=== PATIENT | male | born 1985 | race Caucasian/White ===

== ENCOUNTER → 2017-09-22 | Outpatient (CLI) | payer OTHER ==
[~2017-09-22] MED LIST: ALBU90OI INH; AZIT250 PO; CEPH500 PO; CLIN150 PO; CLIN300 PO; CODACEE120 PO; Cleocin HCl300 MG PO; DIPH50; IBUP600 PO; IBUP800 PO; METPRE4DP PO; MONDOXYNE NL100 MG PO; Mupirocin22 GM TOP; OXYACE5T PO; PRODEXEL PO; RXOXYACE PO; Tylenol325 MG PO; Ultram50 MG PO; Vibramycin100 MG PO; Zithromax250 MG PO
== END ==
LOC: LAB EV 18:33
DX: L03.90 Cellulitis, unspecified (principal)
CPT/HCPCS: 87070; 87075; 87077; 87147; 87186; 87205

== ENCOUNTER 2019-07-05 16:31 | Emergency (ER) | payer MEDICAID ==
[~2019-07-05] VITALS: Ht 180.3 cm; Wt 77.1 kg
[~2019-07-05 16:31] MED LIST changes: +BENADRYL25 MG PO; +Prednisone20 MG PO
== END 2019-07-05 18:40 | disposition home or self-care (01) ==
LOC: ER 16:31
DX: T40.1X1A Poisoning by heroin, accidental (unintentional), initial encounter (principal); L53.8 Other specified erythematous conditions; T43.625A Adverse effect of amphetamines, initial encounter; I10 Essential (primary) hypertension; F17.210 Nicotine dependence, cigarettes, uncomplicated
CPT/HCPCS: 99283-25

== ENCOUNTER 2021-10-11 14:43 | Emergency (ER) | payer OTHER ==
[~2021-10-11] VITALS: Ht 180.3 cm; Wt 83.9 kg
[2021-10-11] MEDS ORDERED: NARCAN4 M1 (16:11)
== END 2021-10-11 16:20 | disposition home or self-care (01) ==
LOC: ER 14:43
DX: T40.2X1A Poisoning by other opioids, accidental (unintentional), initial encounter (principal); I10 Essential (primary) hypertension; F17.210 Nicotine dependence, cigarettes, uncomplicated
CPT/HCPCS: 71045; 96374; 99284-25; J2405

== ENCOUNTER 2021-12-20 13:13 | Observation (INO) | payer OTHER ==
[~2021-12-20] VITALS: Ht 180.3 cm; Wt 86.2 kg
[~2021-12-20 13:13] MED LIST changes: +NARCAN4 M1
[2021-12-20] MEDS ORDERED: NARCAN4 M1 (15:44)
[2021-12-20 16:46] LABS: International Normalized Ratio 1.04; Prothrombin Time Results 10.9 Sec (9.7-11.5)
[2021-12-20 16:47] LABS: BASOPHILS ABSOLUTE AUTO 0.03 K/mm3 (0.00-0.23); BASOPHILS PERCENT AUTO 0 % (0-2); EOSINOPHILS ABSOLUTE AUTO 0.03 K/mm3 (0.00-0.68); EOSINOPHILS PERCENT AUTO 0 % (0-6); Hematocrit 43.3 % (37.0-53.0); Hemoglobin 14.9 g/dL (13.5-17.5); IMMATURE GRAN ABSOLUTE AUTO 0.03 K/mm3 (0.00-0.10); IMMATURE GRAN PERCENT AUTO 0 % (0-1); LYMPHOCYTES ABSOLUTE AUTO 0.86 K/mm3 (0.84-5.20); LYMPHOCYTES PERCENT AUTO 8 % (21-46); MONOCYTES ABSOLUTE AUTO 0.68 K/mm3 (0.16-1.47); MONOCYTES PERCENT AUTO 6 % (4-13); Mean Corpuscular HGB 29.6 pg (26.0-34.0); Mean Corpuscular HGB Conc 34.4 g/dL (31.5-36.5); Mean Corpuscular Volume 86 fL (80-100); Mean Platelet Volume 9.6 fL (9.1-12.4); NEUTROPHILS ABSOLUTE AUTO 9.21 K/mm3 (1.96-9.15); NEUTROPHILS PERCENT AUTO 85 % (41-73); Platelet Count 251 K/mm3 (150-400); RDW Coefficient Variation 12.5 % (11.7-14.2); RDW Standard Deviation 39.5 fL (35.1-46.3); Red Blood Cell Count 5.03 M/mm3 (4.30-5.90); White Blood Cell Count 10.84 K/mm3 (4.00-11.30)
[2021-12-20 17:15] LABS: Alanine Aminotransfer (ALT/SGP 166 U/L (12-78); Albumin, Blood 3.8 g/dL (3.4-5.0); Alk Phos 62 U/L (50-136); Anion Gap 2 mmol/L (6-16); Aspartate Aminotrans (AST/SGOT 101 U/L (12-37); Bilirubin, Total 0.8 mg/dL (0.1-1.0); Blood Urea Nitrogen 17 mg/dL (8-24); Bun/Creatinine Ratio 20.4 (12.0-20.0); CO2, Blood 27 mmol/L (21-32); Calcium, Blood 8.7 mg/dL (8.5-10.1); Chloride, Blood 104 mmol/L (98-108); Creatinine, Blood 0.84 mg/dL (0.60-1.20); Globulin, Blood 3.7 g/dL (2.2-4.0); Glomerular Filtration Rate >60 (60-); Glucose, Blood 99 mg/dL (70-99); Potassium, Blood 4.3 mmol/L (3.5-5.5); Sodium, Blood 133 mmol/L (136-145); Total Protein, Blood 7.5 g/dL (6.4-8.2)
--- NOTE | 2021-12-20 20:45 | NUR ---
ADMISSION REPORT RECIEVED FROM ER NURSE. PATIENT BROUGHT TO PCU AND AMBULATED FROM HALLWAY INTO PCU 20. PATIENT ALERT AND ORIENTED, ANSWERING QUESTIONS APPROPRIATELY. VSS. PATIENT ON 2L NC WITH O2 SAT >90%. PATIENT ABLE TO EAT TONIGHT PER HOSPITALIST, FOOD/DRINK PROVIDED. DENIES NEEDS AT THIS TIME. PATIENT ORIENTED TO ROOM AND CALL LIGHT SYSTEM. CALL LIGHT IN REACH, BED IN LOW POSITION.
--- NOTE | 2021-12-20 22:35 | NUR ---
EKG PATIENT SHOWING "ST ELEVATION" ON TELE PER STAVE CUTTER. 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 SEE CHART FOR EKG. PATIENT DENIES CHEST PAIN OR DISCOMFORT AT THIS TIME.
--- NOTE | 2021-12-21 05:44 | NUR ---
SHIFT SUMMARY NO SIGNIFICANT CHANGES SINCE ADMISSION. PATIENT ALERT AND ORIENTED x4. VSS. TELE SR 80s. PATIENT TITRATED FROM 2L IN ED TO NOW ROOM AIR WITH O2 SAT >90%. AMBULATING IN ROOM TO USE BATHROOM INDEPENDENTLY. PATIENT DIAPHORETIC AND WARM TO TOUCH BUT AFEBRILE. PATIENT STATES "I SLEEP LIKE THIS". SUMMER CLERK MADE AWARE. PATIENT HAS SLEPT MAJORITY OF SHIFT. DENIES CHEST PAIN, SOB, GENERALIZED PAIN OR NAUSEA. BED IN LOW POSITION, CALL LIGHT IN REACH. WILL REPORT TO DAY SHIFT RN.
[2021-12-21] MEDS ORDERED: AMOCLA875 PO (11:45)
--- NOTE | 2021-12-21 12:16 | NUR ---
DISCHARGE SUMMARY: PATIENT TO BE DISCHARGED, TELE DISCONNECTED, IV'S REMOVED, DENIES CHEST PAIN OR SOB, LUNG SOUNDS IMPROVED FROM PREVIOUS SHIFT, PATIENT 100 IN AGREEMENT WITH PLAN. DISCHARGE INSTRUCTIONS WERE COMPLETELY UNDERSTOOD, PATIENT HAD NO QUESTIONS COMMENTS OR CONCERNS AT THIS TIME. PATIENT SATURATING 94% ON RA AND IMPROVING. RN IN AGREEMENT WITH DISCHARGE. PATIENT WALKED OUT WITH FAMILY AND FRIENDS WITH ALL PERSONAL BELONGINGS.
== END 2021-12-21 12:20 | disposition home or self-care (01) ==
LOC: ER 13:13 → PCU 13:14
PROVIDERS: Physician Assistant; ADMIT Internal Medicine
DX: J96.01 Acute respiratory failure with hypoxia (principal); J69.0 Pneumonitis due to inhalation of food and vomit; T40.411A Poisoning by fentanyl or fentanyl analogs, accidental (unintentional), initial encounter; E87.1 Hypo-osmolality and hyponatremia; F11.10 Opioid abuse, uncomplicated; F15.10 Other stimulant abuse, uncomplicated; I10 Essential (primary) hypertension; F17.210 Nicotine dependence, cigarettes, uncomplicated
CPT/HCPCS: 36415; 71260; 80053; 84484; 85025; 85610; 85730; 93005; 93010; A9270; J7030; Q9967

== ENCOUNTER 2022-04-23 22:14 | Emergency (ER) | payer OTHER ==
[~2022-04-23] VITALS: Ht 180.3 cm; Wt 86.2 kg
[~2022-04-23 22:14] MED LIST changes: +AMOCLA875 PO
[2022-04-23] MEDS ORDERED: NARCAN4 M1 (22:42)
== END 2022-04-24 00:37 | disposition home or self-care (01) ==
LOC: ER 22:14
DX: T40.411A Poisoning by fentanyl or fentanyl analogs, accidental (unintentional), initial encounter (principal); R40.4 Transient alteration of awareness; I10 Essential (primary) hypertension; F17.210 Nicotine dependence, cigarettes, uncomplicated; Z79.899 Other long term (current) drug therapy
CPT/HCPCS: 36415; 99285

== ENCOUNTER 2024-12-16 14:25 | Emergency (ER) | payer OTHER ==
[~2024-12-16] VITALS: Ht 180.3 cm; Wt 86.2 kg
[2024-12-16 15:18] VITALS: BP 160/109
== END 2024-12-16 15:33 ==
LOC: ER 14:25
DX: T40.411A Poisoning by fentanyl or fentanyl analogs, accidental (unintentional), initial encounter (principal); R40.4 Transient alteration of awareness; I10 Essential (primary) hypertension; F17.210 Nicotine dependence, cigarettes, uncomplicated; Z88.0 Allergy status to penicillin; Z88.2 Allergy status to sulfonamides
CPT/HCPCS: 99282

== ENCOUNTER 2025-01-23 19:01 | Emergency (ER) | payer OTHER ==
[~2025-01-23] VITALS: Ht 180.3 cm; Wt 86.2 kg
[2025-01-23 19:02] VITALS: BP 123/99
== END 2025-01-23 22:13 | disposition home or self-care (01) ==
LOC: ER 19:01
DX: F11.10 Opioid abuse, uncomplicated (principal); I10 Essential (primary) hypertension; F17.210 Nicotine dependence, cigarettes, uncomplicated; Z88.2 Allergy status to sulfonamides; Z88.0 Allergy status to penicillin
CPT/HCPCS: 99282

== ENCOUNTER 2025-04-15 10:37 | Emergency (ER) | payer OTHER ==
[~2025-04-15] VITALS: Ht 180.3 cm; Wt 83.9 kg
[2025-04-15 10:59] VITALS: BP 143/109
[2025-04-15] MEDS ORDERED: BUPRENORPHINE HC2 MG SL (11:36)
[2025-04-15 12:23] LABS: Alanine Aminotransfer (ALT/SGP 23.0 U/L (12-78); Albumin, Blood 3.6 g/dL (3.4-5.0); Albumin/Globulin Ratio 1.0 (0.8-1.8); Anion Gap 5.0 mmol/L (3-11); Aspartate Aminotrans (AST/SGOT 16.0 U/L (12-37); Bilirubin, Total 0.7 mg/dL (0.1-1.0); Blood Urea Nitrogen 21.0 mg/dL (8-24); CO2, Blood 31.0 mmol/L (21-32); Calcium, Blood 8.9 mg/dL (8.5-10.1); Chloride, Blood 105.0 mmol/L (98-108); Creatinine, Blood 0.91 mg/dL (0.60-1.20); Globulin, Blood 3.6 g/dL (2.2-4.0); Glucose, Blood 97.0 mg/dL (70-99); Potassium, Blood 4.0 mmol/L (3.5-5.5); Sodium, Blood 137.0 mmol/L (136-145); Total Protein, Blood 7.2 g/dL (6.4-8.2)
[2025-04-17 11:28] LABS: HIV 1,2 COMBO ANTIGEN/ANTIBODY Negative (Negative)
[2025-04-17 12:33] LABS: HEPATITIS C AB CIA INTERP High Pos (Negative); HEPATITIS C ANTIBODY CIA INDEX >11.00 IV
[2025-04-18 07:08] LABS: QUANTIFERON MITOGEN MINUS NIL 9.99 IU/mL; QUANTIFERON NIL 0.01 IU/mL; QUANTIFERON PLUS TB1 MINUS NIL 0.01 IU/mL (<=0.34); QUANTIFERON PLUS TB2 MINUS NIL 0.01 IU/mL (<=0.34)
[2025-04-18 23:07] LABS: HCV QNT BY NAAT (IU/ML) Not Detected; HCV QNT BY NAAT (LOG IU/ML) Not Detected; HCV QNT BY NAAT INTERP Not Detected (Not Detected)
== END 2025-04-15 11:48 | disposition home or self-care (01) ==
LOC: ER 10:37
PROVIDERS: Emergency Medicine
DX: F11.90 Opioid use, unspecified, uncomplicated (principal); I10 Essential (primary) hypertension; F17.210 Nicotine dependence, cigarettes, uncomplicated; Z88.0 Allergy status to penicillin; Z88.2 Allergy status to sulfonamides
CPT/HCPCS: 36415; 80053; 86480; 86592; 86803; 87389; 87522; 93005; 93010; 99283-25